=== PATIENT | male | born 1990 | race African-American/Black ===

== ENCOUNTER 2020-08-16 10:32 | Emergency (ER) | payer MEDICARE ==
[~2020-08-16] VITALS: Ht 170.2 cm; Wt 79.4 kg
[2020-08-16] MEDS ORDERED: OLANZapine 2.5 MG TABLET PO ONE (11:00)
[2020-08-16 11:10] LABS: AMPHETAMINE/METHAMPHETAMINE NEG (NEG); BARBITURATES NEG (NEG); BENZODIAZEPINES NEG (NEG); CANNABINOIDS POS (NEG); COCAINE POS (NEG); METHADONE NEG (NEG); OPIATES NEG (NEG); PHENCYCLIDINE NEG (NEG)
[2020-08-16 11:14] LABS: BASO # 0.1 x10^3/uL (0.0-0.2); BASO % 1 % (0-3); EOS # 0.2 x10^3/uL (0.0-0.7); EOS % 1 % (0-3); HEMATOCRIT 45.6 % (39.0-53.0); HEMOGLOBIN 15.9 g/dL (13.0-17.5); LYMPH # 1.5 x10^3/uL (1.0-4.8); LYMPH % 9 % (24-48); MEAN CORPUSCULAR HEMOGLOBIN 29 pg (25-35); MEAN CORPUSCULAR HGB CONC 35 g/dL (31-37); MEAN CORPUSCULAR VOLUME 84 fL (79-100); MONO # 1.1 x10^3/uL (0.0-1.1); MONO % 6 % (0-9); NEUT # 14.6 x10^3uL (1.8-7.7); NEUT % 84 % (31-73); PLATELET COUNT 289 x10^3/uL (140-400); RED BLOOD COUNT 5.45 x10^6/uL (4.30-5.70); WHITE BLOOD COUNT 17.5 x10^3/uL (4.0-11.0)
[2020-08-16 11:19] LABS: CALCIUM 9.6 mg/dL (8.5-10.1); CREATININE 1.1 mg/dL (0.7-1.3); GFR 96.4; POTASSIUM 4.3 mmol/L (3.5-5.1)
--- NOTE | 2020-08-16 12:11 | RAD ---
XR CHEST 1V CLINICAL INDICATIONS: elevated white count Comparison none available. Findings: No acute lung infiltrate or pleural effusion or pulmonary edema or lung mass or pneumothora x is seen. The heart size, pulmonary vasculature, mediastinum and both smitha are unremarkable. IMPRESSION: No acute radiographic abnormality is seen. Electronically signed by: Aguila Flowers MD (08/16/2020 12:08 PM) [id number]
[2020-08-16 12:27] LABS: BACTERIA,URINE 0 /HPF (0-FEW); BILIRUBIN,URINE NEG (NEG); CLARITY,URINE CLEAR; COLOR,URINE YELLOW; GLUCOSE,URINE NEG (NEG); NITRITE,URINE NEG (NEG); RBC,URINE 0 /HPF (0-2); SQUAMOUS EPITHELIAL CELL,UR OCC /LPF; UROBILINOGEN,URINE 0.2 mg/dL (0.2 mg/dL); WBC,URINE 0 /HPF (0-4)
--- NOTE | 2020-08-16 12:41 | PHYS DOC ---
Past History Past Medical History: Bipolar, Schizophrenia Past Surgical History: No Surgical History Alcohol Use: Heavy General Adult EDM: Chief Complaint: SUICIDAL IDEATION HPI: HPI: 29-year-old male past medical history significant for schizophrenia, presents the ED with complaints of hearing voices telling me to kill myself and others, I held a knife up to my chest yesterday. has been off his Zyprexa 10 mg for the past month and has been on this medication for 8 years. States he has been admitted to a psych facility before for suicidal thoughts and a plan-prior plan was the same as today. Does report alcohol abuse, snorts cocaine and smokes marijuana. Reports he lives with family and believes his last psych follow-up was at the [facility]. Denies any homicidal ideations or visual hallucinations. Otherwise reports he feels well. Review of Systems: Review of Systems: Constitutional: Denies fever or chills Eyes: Denies change in visual acuity HENT: Denies nasal congestion or sore throat Respiratory: Denies cough or shortness of breath Cardiovascular: Denies chest pain or edema GI: Denies abdominal pain, nausea, vomiting, bloody stools or diarrhea : Denies dysuria or dysuria Musculoskeletal: Denies back pain or joint pain Integument: Denies rash diaphoresis Neurologic: Denies headache, focal weakness or sensory changes Endocrine: Denies polyuria or polydipsia Lymphatic: Denies swollen glands Psychiatric: Denies anxiety or homicidal ideations Current Medications: Current Meds: Current Medications Medications (Trade) Dose Ordered Sig/Denise Start Time Stop Time Status Last Admin Dose Admin Olanzapine (ZyPREXA) 10 mg 1X ONCE 08/16/20 11:00 08/16/20 11:10 DC 08/16/20 11:00 10 MG Allergies: Allergies: Allergies Coded Allergies Type Severity Reaction Last Updated Verified banana Allergy Unknown 08/16/20 Yes chlorpromazine Allergy Unknown 08/16/20 Yes cinnamon Allergy Unknown 08/16/20 Yes iodine Allergy Unknown 08/16/20 Yes potassium Allergy Unknown 08/16/20 Yes Physical Exam: PE: Constitutional: Well developed, well nourished, no acute distress, non-toxic appearance. HENT: Normocephalic, atraumatic, Eyes: EOMI, conjunctiva normal, no discharge. Neck: Normal range of motion, supple, Cardiovascular: S1/2 present, regular rhythm Lungs & Thorax: Speaking in full sentences, bilateral equal chest rise, no tachypnea or increased work of breathing Abdomen: soft, no tenderness, Skin: Warm, dry, no erythema, no rash. [] Back: No tenderness, no CVA tenderness. [] Extremities: No tenderness, no cyanosis, no edema Neurologic: Alert and oriented X 3, normal motor function, normal sensory function, no focal deficits noted. [] Psychologic: Affect normal, judgement normal, mood normal-very calm and directable Current Patient Data: Labs: Laboratory Tests Test 08/16/20 10:46 08/16/20 10:55 08/16/20 11:05 Urine Collection Type Unknown Urine Color Yellow Urine Clarity Clear Urine pH 7.0 Urine Specific [place] 1.010 Urine Protein Neg (NEG-TRACE) Urine Glucose (UA) Neg mg/dL (NEG) Urine Ketones (Stick) Neg mg/dL (NEG) Urine Blood Neg (NEG) Urine Nitrite Neg (NEG) Urine Bilirubin Neg (NEG) Urine Urobilinogen Dipstick 0.2 mg/dL (0.2 mg/dL) Urine Leukocyte Esterase Neg (NEG) Urine RBC 0 /HPF (0-2) Urine WBC 0 /HPF (0-4) Urine Squamous Epithelial Cells Occ /LPF Urine Bacteria 0 /HPF (0-FEW) Urine Opiates Screen Neg (NEG) Urine Methadone Screen Neg (NEG) Urine Barbiturates Neg (NEG) Urine Phencyclidine Screen Neg (NEG) Urine Amphetamine/Methamphetamine Neg (NEG) Urine Benzodiazepines Screen Neg (NEG) Urine Cocaine Screen Pos (NEG) Urine Cannabinoids Screen Pos (NEG) Urine Ethyl Alcohol Neg (NEG) White Blood Count 17.5 x10^3/uL (4.0-11.0) H Red Blood Count 5.45 x10^6/uL (4.30-5.70) Hemoglobin 15.9 g/dL (13.0-17.5) Hematocrit 45.6 % (39.0-53.0) Mean Corpuscular Volume 84 fL (79-100) Mean Corpuscular Hemoglobin 29 pg (25-35) Mean Corpuscular Hemoglobin Concent 35 g/dL (31-37) Red Cell Distribution Width 14.0 % (11.5-14.5) Platelet Count 289 x10^3/uL (140-400) Neutrophils (%) (Auto) 84 % (31-73) H Lymphocytes (%) (Auto) 9 % (24-48) L Monocytes (%) (Auto) 6 % (0-9) Eosinophils (%) (Auto) 1 % (0-3) Basophils (%) (Auto) 1 % (0-3) Neutrophils # (Auto) 14.6 x10^3uL (1.8-7.7) H Lymphocytes # (Auto) 1.5 x10^3/uL (1.0-4.8) Monocytes # (Auto) 1.1 x10^3/uL (0.0-1.1) Eosinophils # (Auto) 0.2 x10^3/uL (0.0-0.7) Basophils # (Auto) 0.1 x10^3/uL (0.0-0.2) Platelet Estimate Pending Sodium Level 133 mmol/L (136-145) L Potassium Level 4.3 mmol/L (3.5-5.1) Chloride Level 99 mmol/L (98-107) Carbon Dioxide Level 23 mmol/L (21-32) Anion Gap 11 (6-14) Blood Urea Nitrogen 7 mg/dL (8-26) L Creatinine 1.1 mg/dL (0.7-1.3) Estimated GFR (Cockcroft-Gault) 96.4 Glucose Level 137 mg/dL (70-99) H Calcium Level 9.6 mg/dL (8.5-10.1) SARS-CoV-2 Antigen (Rapid) Negative (NEGATIVE) Vital Signs: Vital Signs Date Time Temp Pulse Resp B/P (MAP) Pulse Ox O2 Delivery O2 Flow Rate FiO2 08/16/20 10:40 99.0 111 18 129/94 (106) 95 Room Air EKG: EKG: [] Radiology/Procedures: Radiology/Procedures: IMAGING REPORT Signed PATIENT: FLOR REID JACCOUNT: [id number] : 1990 LOCATION: ER AGE: 29 SEX: M EXAM STATUS: REG ER ORD. PHYSICIAN: MIA AGUILAR DO REASON: si for placement, elevated white count PROCEDURE: CHEST AP ONLY XR CHEST 1V CLINICAL INDICATIONS: elevated white count Comparison none available. Findings: No acute lung infiltrate or pleural effusion or pulmonary edema or lung mass or pneumothorax is seen. The heart size, pulmonary vasculature, mediastinum and both smitha are unremarkable. IMPRESSION: No acute radiographic abnormality is seen. Electronically signed by: Dora Flowers MD (08/16/2020 12:08 PM) [id number] DICTATED AND SIGNED BY: DORA FLOWERS MD DATE: 08/16/20 1207 CC: PCPJOAN; MIA AGUILAR DO ~MTH0 0 Heart Score: Risk Factors: Risk Factors: DM, Current or recent (<one month) smoker, HTN, HLP, family history of CAD, obesity. Risk Scores: Score 0 - 3: 2.5% MACE over next 6 weeks - Discharge Home Score 4 - 6: 20.3% MACE over next 6 weeks - Admit for Clinical Observation Score 7 - 10: 72.7% MACE over next 6 weeks - Early Invasive Strategies Course & Med Decision Making: Course & Med Decision Making Pertinent Labs and Imaging studies reviewed. (See chart for details) Concern for suicidal ideations with a specific plan in a schizophrenic who appears to be moderate to high risk. Noncompliance with medication for 1 month and polysubstance abuse. Patient with nonspecific leukocytosis. Chest x-ray normal and urinalysis with no infection. Rapid Covid test negative. Patient afebrile-has no complaints concerning for infection. Patient is medically cleared for voluntary psych placement. Patient has been assessed by VAT team. Patient was accepted by Dr. Abdulkadir Willingham at [facility]. Patient stable at time of transfer and agrees with this plan. Rabia Disclaimer: Rabia Disclaimer: This electronic medical record was generated, in whole or in part, using a voice recognition dictation system. Departure Departure: Impression: Primary Impression: Suicidal ideations Additional Impressions: Planning to commit suicide Schizophrenia Polysubstance abuse Noncompliance with medications Disposition: 66 DC/TRF TO PSYCH HOSP ([facility] in [place], Dr. Abdulkadir Willingham) Condition: STABLE Referrals: PCPJOAN (PCP) MIA AGUILAR DO Aug 16, 2020 12:41
[2020-08-16 13:58] LABS: % ATYL 1 % (0-0); % BANDS 2 % (0-9); % EOS 1 % (0-5); % LYMPHS 12 % (24-48); % MONOS 6 % (0-10); % SEGS 78 % (35-66); PLT ESTIMATE ADEQUATE (ADEQUATE)
[2020-08-16 13:59] LABS: TOXIC GRANULATION PRESENT; TOXIC VACUOLATION PRESENT
[2020-08-16 16:03] VITALS: BP 156/103
== END 2020-08-16 16:22 ==
LOC: ER 10:32
DX: R45.851 Suicidal ideations (principal); F20.9 Schizophrenia, unspecified; F19.10 Other psychoactive substance abuse, uncomplicated; F31.9 Bipolar disorder, unspecified; F10.20 Alcohol dependence, uncomplicated; Z91.14 Patient's other noncompliance with medication regimen; Z20.828 Contact with and (suspected) exposure to other viral communicable diseases; Z91.018 Allergy to other foods; Z88.8 Allergy status to other drugs, medicaments and biological substances; Y90.0 Blood alcohol level of less than 20 mg/100 ml
CPT/HCPCS: 36415; 71045; 80048; 80307; 81001; 85007; 85025; 87426; 99285; C9803; U0003

== ENCOUNTER 2020-10-11 19:24 | Emergency (ER) | payer MEDICARE ==
[~2020-10-11] VITALS: Ht 170.2 cm; Wt 79.4 kg
[2020-10-11] MEDS ORDERED: HALOPERIDOL LACT 5 MG/ML VIAL. IM ONE (19:45)
--- NOTE | 2020-10-11 19:47 | PHYS DOC ---
Past History Past Medical History: Bipolar, Schizophrenia Past Surgical History: No Surgical History Alcohol Use: Heavy Adult General Chief Complaint Chief Complaint: PSYCH EVALUATION HPI HPI Patient is a 30-year-old male with a past medical history significant for schizophrenia who presents to the emergency department with suicidal and homicidal ideations as well as auditory hallucinations. Patient states he has not been taking his olanzapine at home now for several weeks and over the last several days has had some stressful things going on in his life. States over the last couple of days he has been hearing voices telling him to kill himself and some of his family members. States that this was really distressing. States that today he went up to the police department and told him what was going on and he was having thoughts of hurting himself and others and was directed to the emergency department. States that his plan today was to stab himself in the chest with a knife but at the last second decided not to and try to get help. Denies any recent travel, traumas, fevers, illnesses, known ill contacts. Denies any other drug use. Denies taking any other medications in an attempt to hurt himself. Denies actually hurting himself or others. States that here in the emergency department he is still occasionally hearing voices, telling him to hurt himself. Review of Systems Review of Systems Review of systems otherwise unremarkable except noted in HPI Allergies Allergies Allergies Coded Allergies Type Severity Reaction Last Updated Verified banana Allergy Unknown 08/16/20 Yes chlorpromazine Allergy Unknown 08/16/20 Yes cinnamon Allergy Unknown 08/16/20 Yes iodine Allergy Unknown 08/16/20 Yes potassium Allergy Unknown 08/16/20 Yes Physical Exam Physical Exam Constitutional: Well developed, well nourished, no acute distress, non-toxic appearance. [] HENT: Normocephalic, atraumatic, bilateral external ears normal, oropharynx mo ist, no oral exudates, nose normal. [] Eyes: PERRLA, EOMI, conjunctiva normal, no discharge. [] Neck: Normal range of motion, no tenderness, supple, no stridor. [] Cardiovascular: Tachycardia, with no murmur Lungs & Thorax: Bilateral breath sounds clear to auscultation [] Abdomen: soft, no tenderness, no masses, no pulsatile masses. [] Skin: Warm, dry, no erythema, no rash. [] Extremities: No tenderness, no cyanosis, no clubbing, ROM intact, no edema. [] Neurologic: Alert and oriented X 3, normal motor function, normal sensory function, no focal deficits noted. [] Psychologic: Patient cooperative, appears anxious. Normal speech patterns. Endorsing suicidal ideation, and homicidal ideation secondary to auditory hallucinations telling him to do so. EKG EKG EKG with a rate of 85, QRS of 96, QTC of 400, no STEMI [] Radiology/Procedures Radiology/Procedures [] Heart Score Risk Factors: Risk Factors: DM, Current or recent (<one month) smoker, HTN, HLP, family history of CAD, obesity. Risk Scores: Risk Factors: DM, Current or recent (<one month) smoker, HTN, HLP, family hist ory of CAD, obesity. Course & Med Decision Making Course & Med Decision Making Patient is a 30-year-old male with a past medical history of schizophrenia who presents with auditory hallucinations, stating they are telling him to kill himself and others in his family which is causing him distress because he really does not want to. Vital signs initially notable for tachycardia. Physical exam noted above. Patient given Haldol for auditory hallucinations. Haldol seem to help with patient's auditory hallucinations and allowed patient to sleep. Laboratory analysis with unexplained leukocytosis patient with no symptoms of infection and does not appear ill. Could be stress reaction. Accepted to [facility] by Dr. Estes. Patient verbalized understanding of treatment plan and agreed with plan of transfer and admission. [] Dragon Disclaimer Dragon Disclaimer This electronic medical record was generated, in whole or in part, using a voice recognition dictation system. Departure Departure: Impression: Primary Impression: Suicidal ideation Additional Impressions: Homicidal ideation Auditory hallucinations Disposition: 65 DC/TRF TO PSYCH HOSP Condition: IMPROVED Referrals: PCP,NO (PCP) Problem Qualifiers DESTINY MURRAY MD Oct 11, 2020 19:47
[2020-10-11 19:53] LABS: BASO # 0.1 x10^3/uL (0.0-0.2); BASO % 1 % (0-3); EOS # 0.1 x10^3/uL (0.0-0.7); EOS % 0 % (0-3); HEMATOCRIT 46.6 % (39.0-53.0); HEMOGLOBIN 16.2 g/dL (13.0-17.5); LYMPH # 2.8 x10^3/uL (1.0-4.8); LYMPH % 12 % (24-48); MEAN CORPUSCULAR HEMOGLOBIN 30 pg (25-35); MEAN CORPUSCULAR HGB CONC 35 g/dL (31-37); MEAN CORPUSCULAR VOLUME 85 fL (79-100); MONO # 1.2 x10^3/uL (0.0-1.1); MONO % 5 % (0-9); NEUT % 83 % (31-73); PLATELET COUNT 271 x10^3/uL (140-400); RED BLOOD COUNT 5.47 x10^6/uL (4.30-5.70); RED CELL DISTRIBUTION WIDTH 14.1 % (11.5-14.5); WHITE BLOOD COUNT 24.3 x10^3/uL (4.0-11.0)
[2020-10-11 20:01] LABS: BARBITURATES NEG (NEG); BENZODIAZEPINES NEG (NEG); CANNABINOIDS POS (NEG); COCAINE NEG (NEG); METHADONE NEG (NEG); OPIATES NEG (NEG); PHENCYCLIDINE NEG (NEG)
[2020-10-11 20:02] LABS: AMPHETAMINE/METHAMPHETAMINE NEG (NEG); CALCIUM 9.3 mg/dL (8.5-10.1); CREATININE 0.9 mg/dL (0.7-1.3); GFR 120.7; POTASSIUM 3.8 mmol/L (3.5-5.1)
[2020-10-11 20:07] LABS: ACETAMIN < 2.0 mcg/mL (10-30); ETHANOL < 10 mg/dL (0-10); SALIC 5.9 mg/dL (2.8-20.0)
[2020-10-11 20:08] LABS: TOTAL BILIRUBIN 0.4 mg/dL (0.2-1.0); TOTAL PROTEIN 8.1 g/dL (6.4-8.2)
--- NOTE | 2020-10-11 20:17 | EKG ---
[facility] ED [address] [place] [id number] Test Date: 2020-10-11 Test Time: 20:06:40 Pat Name: FLOR REID Department: Room: Gender: M Ham Trimmer: : 1990 Requested By: DESTINY MURRAY Order Number: [id number] Reading MD: Jose Phan MD Measurements Intervals [place] Rate: 85 P: 51 [place]: 162 QRS: 67 QRSD: 96 T: 32 QT: 336 QTc: 400 Interpretive Statements SINUS RHYTHM Electronically Signed On 10-12-2020 10:30:35 [employer]SRO[employer] INSTRU[employer] by Jose Phan MD
[2020-10-11 20:48] LABS: % BANDS 5 % (0-9); % LYMPHS 10 % (24-48); % MONOS 5 % (0-10); % SEGS 80 % (35-66); PLT ESTIMATE ADEQUATE (ADEQUATE)
[2020-10-11 21:56] LABS: BILIRUBIN,URINE NEG (NEG); CLARITY,URINE CLEAR; COLOR,URINE YELLOW; GLUCOSE,URINE NEG (NEG)
[2020-10-11 21:57] LABS: BACTERIA,URINE 0 /HPF (0-FEW); NITRITE,URINE NEG (NEG); RBC,URINE 0 /HPF (0-2); UROBILINOGEN,URINE 0.2 mg/dL (0.2 mg/dL); WBC,URINE 0 /HPF (0-4)
[2020-10-11] MEDS ORDERED: IV RINGERS SOLUTION,LACTATED 1,000 ML IV ONE (22:00)
[2020-10-11 22:50] VITALS: BP 136/85
== END 2020-10-12 01:55 ==
LOC: ER 19:24
DX: R45.851 Suicidal ideations (principal); Z20.822 Contact with and (suspected) exposure to COVID-19; R45.850 Homicidal ideations; R44.0 Auditory hallucinations; F31.9 Bipolar disorder, unspecified; Z88.8 Allergy status to other drugs, medicaments and biological substances; Z91.018 Allergy to other foods
CPT/HCPCS: 36415; 80053; 80307; 80329; 81001; 85007; 85025; 87426; 93005; 96360; 96372; 99285; C9803; G0480; J1630; J7120; U0003